=== PATIENT | male | born 1950 | race Hispanic/Latino ===

== ENCOUNTER 2017-06-02 11:41 | Emergency (ER) | payer MEDICARE, OTHER ==
[2017-06-02 12:48] LABS: BASOPHILS % (AUTO) 0.6 % (0.0-5.0); EOSINOPHILS % (AUTO) 2.6 % (0.0-8.0); HEMATOCRIT 26.6 % (42-54); LYMPHOCYTES % (AUTO) 15.6 % (21.0-51.0); MEAN CORPUSCULAR HGB CONC 35.5 g/dL (32.0-36.0); MEAN CORPUSCULAR VOLUME 95.9 fL (79-99); MONOCYTES % (AUTO) 11.5 % (3.0-13.0); NEUTROPHILS % (AUTO) 69.7 % (40.0-77.0); PLATELET COUNT (AUTO) 167 K/uL (130-400); RED BLOOD CELL COUNT(AUTO) 2.78 MIL/uL (4.50-6.20); RED CELL DISTRIBUTION WIDTH 13.4 % (11.0-15.5); WHITE BLOOD COUNT (AUTO) 6.3 K/uL (4.8-10.8)
[2017-06-02 12:57] LABS: CREATININE 1.9 mg/dL (0.5-1.5); POTASSIUM 4.7 mmol/L (3.5-5.1)
[2017-06-02 13:01] LABS: INR 1.14 (0.85-1.15); PARTIAL THROMBOPLASTIN TIME 25.7 SEC (26.3-35.5); PROTHROMBIN TIME 11.9 SEC (9.6-11.6)
[2017-06-02 13:03] LABS: ALBUMIN 2.6 g/dL (3.5-5.0); BILIRUBIN,TOTAL 0.3 mg/dL (0.2-1.0); TOTAL PROTEIN, SERUM 5.7 g/dL (6.0-8.3)
[2017-06-02 13:37] LABS: APPEARANCE,URINE CLEAR (CLEAR); BILIRUBIN,URINE NEGATIVE (NEGATIVE); COLOR,URINE YELLOW (YELLOW); GLUCOSE, URINE (UA) 100 mg/dL (NEGATIVE); KETONES,URINE NEGATIVE (NEGATIVE); LEUKOCYTE ESTERASE ,URINE NEGATIVE (NEGATIVE); NITRATE,URINE NEGATIVE (NEGATIVE); OCCULT BLOOD,URINE SMALL (NEGATIVE); PROTEIN,URINE >=300 (NEGATIVE); UROBILINOGEN,URINE 0.2 mg/dL (0.2-1.0)
[2017-06-02 13:46] LABS: HYALINE CASTS, URINE 0-1 /LPF (0-1 /LPF); SQUAMOUS EPITHELIAL CELL,UR Rare /HPF (0-2)
[2017-06-02 13:48] LABS: BACTERIA,URINE Rare /HPF (None Seen); WBC,URINE None Seen /HPF (0-1)
[2017-06-02 14:11] LABS: ERYTHROCYTE SEDIMENTATION RATE 75 MM/HR (0-15)
[2017-06-02] MEDS ORDERED: DIAZEPAM 5 MG TABLET ONE (14:58)
== END 2017-06-02 18:33 | disposition home or self-care (01) ==
LOC: EDSEX → EDH 11:41
DX: G89.29 Other chronic pain (principal); M54.5 Low back pain; I25.10 Atherosclerotic heart disease of native coronary artery without angina pectoris; E11.9 Type 2 diabetes mellitus without complications; E78.5 Hyperlipidemia, unspecified; I10 Essential (primary) hypertension; Z88.0 Allergy status to penicillin; Z95.1 Presence of aortocoronary bypass graft; Z89.421 Acquired absence of other right toe(s)
CPT/HCPCS: 36415; 72148; 80053; 81001; 82550; 84484; 85025; 85610; 85651; 85730; 93005; 94761

== ENCOUNTER → 2017-11-05 | Outpatient (CLI) | payer MEDICARE, OTHER | END | disposition home or self-care (01) | LOC: RAH 16:17 | PROVIDERS: ATTEND Internal Medicine | DX: M51.36 Other intervertebral disc degeneration, lumbar region (principal); M47.896 Other spondylosis, lumbar region; M48.061 Spinal stenosis, lumbar region without neurogenic claudication; R29.6 Repeated falls; M25.78 Osteophyte, vertebrae; I10 Essential (primary) hypertension; E11.9 Type 2 diabetes mellitus without complications; E78.5 Hyperlipidemia, unspecified | CPT/HCPCS: 72100 ==

== ENCOUNTER 2017-11-22 07:06 | Inpatient (IN) | payer OTHER ==
[~2017-11-22] VITALS: Ht 167.6 cm; Wt 82.7 kg
[2017-11-22 07:45] LABS: BASOPHILS % (AUTO) 0.7 % (0.0-5.0); EOSINOPHILS % (AUTO) 1.3 % (0.0-8.0); LYMPHOCYTES % (AUTO) 5.3 % (21.0-51.0); MEAN CORPUSCULAR HEMOGLOBIN 32.4 pg (27.0-33.0); MEAN CORPUSCULAR HGB CONC 33.4 g/dL (32.0-36.0); MEAN CORPUSCULAR VOLUME 96.9 fL (79-99); MONOCYTES % (AUTO) 11.4 % (3.0-13.0); NEUTROPHILS % (AUTO) 81.3 % (40.0-77.0); PLATELET COUNT (AUTO) 288 K/uL (130-400); RED BLOOD CELL COUNT(AUTO) 1.95 MIL/uL (4.50-6.20); RED CELL DISTRIBUTION WIDTH 13.6 % (11.0-15.5); WHITE BLOOD COUNT (AUTO) 13.2 K/uL (4.8-10.8)
[2017-11-22 07:51] LABS: CREATININE 3.4 mg/dL (0.5-1.5); POTASSIUM 5.6 mmol/L (3.5-5.1)
[2017-11-22 07:53] LABS: ABG BASE EXCESS -6.2 mmol/L (-2.0-3.0); ABG OXYGEN SATURATION 95.6 % (95.0-99.0); ABG PCO2 28 mmHg (35-48)
[2017-11-22 07:55] LABS: INR 1.25 (0.85-1.15); PARTIAL THROMBOPLASTIN TIME 29.4 SEC (26.3-35.5); PROTHROMBIN TIME 13.1 SEC (9.6-11.6)
[2017-11-22 07:56] LABS: ALBUMIN 2.3 g/dL (3.5-5.0); BILIRUBIN,TOTAL 0.4 mg/dL (0.2-1.0); TOTAL PROTEIN, SERUM 6.4 g/dL (6.0-8.3)
[2017-11-22 08:12] LABS: B-TYPE NATRIURETIC PEPTIDE 2030 pg/mL (0-100)
[2017-11-22] MEDS ORDERED: LEVOFLOXACIN 500 MG/D5W 100 ML 100 ML ONE (08:16)
[2017-11-22 08:44] LABS: HEMATOCRIT 18.9 % (42-54)
[2017-11-22] MEDS ORDERED: PHARMACY COMMUNICATION MISC SCH (09:45)
[2017-11-22] MEDS ORDERED: LORATADINE 10 MG TABLET PO SCH (09:45)
[2017-11-22] MEDS ORDERED: ACETAMINOPHEN 325 MG TAB PO SCH (09:45)
[2017-11-22] MEDS: SODIUM CHLORIDE 0.9% IVP SCH (10:15)
[2017-11-22] MEDS: BUMETANIDE IVP SCH (10:15)
[2017-11-22 10:43] LABS: TROPONIN I 0.19 ng/mL (0.00-0.06)
[2017-11-22 10:48] LABS: % IRON SATURATION 9.6 % (30-44)
[2017-11-22] MEDS ORDERED: ACETAMINOPHEN 325 MG TAB ONE (11:18)
[2017-11-22] MEDS ORDERED: LORATADINE 10 MG TABLET ONE (11:18)
[2017-11-22 11:28] LABS: APPEARANCE,URINE Clear (CLEAR); BILIRUBIN,URINE Negative (NEGATIVE); COLOR,URINE Yellow (YELLOW); GLUCOSE, URINE (UA) 250 mg/dL (NEGATIVE); KETONES,URINE Negative (NEGATIVE); LEUKOCYTE ESTERASE ,URINE Trace (NEGATIVE); NITRATE,URINE Negative (NEGATIVE); OCCULT BLOOD,URINE Negative (NEGATIVE); PH,URINE 7.5 (5.0-8.0); PROTEIN,URINE >=1000 (NEGATIVE); UROBILINOGEN,URINE 0.2 mg/dL (0.2-1.0)
[2017-11-22 11:39] LABS: BACTERIA,URINE Few /HPF (None Seen); RBC,URINE None Seen /HPF (0-1); SQUAMOUS EPITHELIAL CELL,UR 0-2 /HPF (0-2)
[2017-11-22 14:55] VITALS: BP 156/73
[2017-11-22 16:23] VITALS: BP 168/78
[2017-11-22 19:00] VITALS: BP 150/68
[2017-11-22] MEDS ORDERED: ATOR40TA69 PO (19:46)
[2017-11-22] MEDS ORDERED: AMLO2.5T3 PO (19:46)
[2017-11-22] MEDS ORDERED: NIFE30TA91 PO (19:46)
[2017-11-22] MEDS ORDERED: SODI650T PO (19:46)
[2017-11-22] MEDS ORDERED: CYAN10009 PO (19:46)
[2017-11-22] MEDS ORDERED: GLIP5POW MC (19:46)
[2017-11-22] MEDS ORDERED: METO50TA18 PO (19:46)
[2017-11-22] MEDS ORDERED: FOLI0.8T41 PO (19:46)
[2017-11-22] MEDS ORDERED: ENAL20TA PO (19:46)
[2017-11-22] MEDS ORDERED: DULO60CA63 PO (19:46)
[2017-11-22] MEDS ORDERED: ASPI-1012 PO (19:46)
[2017-11-22 20:19] LABS: ALBUMIN 2.3 g/dL (3.5-5.0); CREATININE 3.3 mg/dL (0.5-1.5); PHOSPHORUS 4.1 mg/dL (2.5-4.9)
[2017-11-22 20:36] LABS: TROPONIN I 0.19 ng/mL (0.00-0.06)
[2017-11-22] MEDS ORDERED: ACETAMINOPHEN 325 MG TAB PO PRN (22:30)
[2017-11-22] MEDS ORDERED: ACETAMINOPHEN EXTRA STRENGTH 500 MG TABLET PO PRN (22:30)
[2017-11-22] MEDS: ENALAPRIL MALEATE 10 MG TABLET PO SCH (22:35)
[2017-11-22] MEDS: SODIUM BICARBONATE 650 MG TAB PO SCH (22:35)
[2017-11-22] MEDS: ATORVASTATIN CALCIUM 40 MG TABLET PO SCH (22:35)
[2017-11-22] MEDS: METOPROLOL TARTRATE 50 MG TAB PO SCH (22:35)
[2017-11-22 22:48] LABS: TROPONIN I 0.21 ng/mL (0.00-0.06)
[2017-11-22 23:00] VITALS: BP 161/81
[2017-11-23 03:00] VITALS: BP 176/76
[2017-11-23 04:05] LABS: CREATININE 3.5 mg/dL (0.5-1.5); POTASSIUM 4.7 mmol/L (3.5-5.1); TROPONIN I 0.31 ng/mL (0.00-0.06)
[2017-11-23] MEDS: GLIPIZIDE 5 MG TABLET PO SCH ×2 (06:25→19:10)
[2017-11-23] MEDS: SODIUM CHLORIDE 0.9% IVP SCH (06:37)
[2017-11-23] MEDS: BUMETANIDE IVP SCH (06:37)
[2017-11-23 07:28] VITALS: BP 188/77
[2017-11-23] MEDS ORDERED: AMLODIPINE BESYLATE 2.5 MG TAB PO SCH (09:00)
[2017-11-23] MEDS ORDERED: NIFEDIPINE ER 30 MG TAB PO SCH (09:00)
[2017-11-23] MEDS: PANTOPRAZOLE 40 MG/VIAL IVP SCH (09:36)
[2017-11-23] MEDS: METOPROLOL TARTRATE 50 MG TAB PO SCH (09:37)
[2017-11-23] MEDS: SODIUM BICARBONATE 650 MG TAB PO SCH ×2 (09:37→21:10)
[2017-11-23] MEDS: FOLIC ACID/VITAMIN B COMP W-C 1 MG CAPSULE PO SCH (09:38)
[2017-11-23] MEDS: CYANOCOBALAMIN (VITAMIN B-12) 1,000 MCG TABLET PO SCH (09:38)
[2017-11-23] MEDS: ENALAPRIL MALEATE 10 MG TABLET PO SCH ×2 (09:38→21:11)
[2017-11-23] MEDS: ASPIRIN 325 MG TABLET PO SCH (09:39)
[2017-11-23] MEDS: DULOXETINE HCL 30 MG CAP PO SCH (09:39)
[2017-11-23 11:14] VITALS: BP 165/59
[2017-11-23 13:00] LABS: MEAN CORPUSCULAR HGB CONC 34.5 g/dL (32.0-36.0); MEAN CORPUSCULAR VOLUME 92.9 fL (79-99); PLATELET COUNT (AUTO) 236 K/uL (130-400); RED BLOOD CELL COUNT(AUTO) 2.18 MIL/uL (4.50-6.20); RED CELL DISTRIBUTION WIDTH 17.2 % (11.0-15.5); WHITE BLOOD COUNT (AUTO) 8.7 K/uL (4.8-10.8)
[2017-11-23 13:26] LABS: HEMATOCRIT 20.2 % (42-54)
[2017-11-23] MEDS ORDERED: SODIUM CHLORIDE 0.9% 250 ML IV ONE (15:43)
[2017-11-23 16:16] VITALS: BP 134/61
[2017-11-23 19:41] VITALS: BP 147/64
[2017-11-23] MEDS: ATORVASTATIN CALCIUM 40 MG TABLET PO SCH (21:10)
[2017-11-23] MEDS: LABETALOL HCL 200 MG TABLET PO SCH (21:11)
[2017-11-23 23:42] VITALS: BP 141/72
[2017-11-24 03:44] VITALS: BP 137/59
[2017-11-24 04:05] LABS: CREATININE 3.8 mg/dL (0.5-1.5)
[2017-11-24 04:09] LABS: B-TYPE NATRIURETIC PEPTIDE 1040 pg/mL (0-100)
[2017-11-24 04:16] LABS: HEMATOCRIT 24.3 % (42-54); MEAN CORPUSCULAR HEMOGLOBIN 30.8 pg (27.0-33.0); MEAN CORPUSCULAR VOLUME 90.4 fL (79-99); PLATELET COUNT (AUTO) 263 K/uL (130-400); RED BLOOD CELL COUNT(AUTO) 2.69 MIL/uL (4.50-6.20); RED CELL DISTRIBUTION WIDTH 16.2 % (11.0-15.5); WHITE BLOOD COUNT (AUTO) 7.3 K/uL (4.8-10.8)
[2017-11-24] MEDS: GLIPIZIDE 5 MG TABLET PO SCH ×2 (06:50→16:28)
[2017-11-24 07:00] VITALS: BP 142/64
[2017-11-24] MEDS ORDERED: AMLODIPINE BESYLATE 5 MG TAB PO SCH (09:00)
[2017-11-24] MEDS ORDERED: BUMETANIDE 1 MG TAB PO SCH (09:00)
[2017-11-24] MEDS: DULOXETINE HCL 30 MG CAP PO SCH (09:28)
[2017-11-24] MEDS: LABETALOL HCL 200 MG TABLET PO SCH (09:29)
[2017-11-24] MEDS: FOLIC ACID/VITAMIN B COMP W-C 1 MG CAPSULE PO SCH (09:29)
[2017-11-24] MEDS: PANTOPRAZOLE 40 MG/VIAL IVP SCH (09:30)
[2017-11-24] MEDS: ASPIRIN 325 MG TABLET PO SCH (09:30)
[2017-11-24] MEDS: CYANOCOBALAMIN (VITAMIN B-12) 1,000 MCG TABLET PO SCH (09:30)
[2017-11-24] MEDS: ENALAPRIL MALEATE 10 MG TABLET PO SCH (09:30)
[2017-11-24] MEDS: SODIUM BICARBONATE 650 MG TAB PO SCH (09:31)
[2017-11-24 11:00] VITALS: BP 116/58
[2017-11-24 16:00] VITALS: BP 149/72
[2017-11-24] MEDS ORDERED: AMLO5TAB4 PO (16:34)
[2017-11-24] MEDS ORDERED: BUME1TAB12 PO (16:34)
[2017-11-24] MEDS ORDERED: LABE200T5 PO (16:34)
== END 2017-11-24 19:45 | disposition home or self-care (01) | DRG 291 ==
LOC: EDSEX 07:06 → EDH 07:06 → EDHIP 09:24 → 2AH 14:30
PROVIDERS: ADMIT Internal Medicine; ATTEND Internal Medicine
PROC: 30233N1 Transfusion of Nonautologous Red Blood Cells into Peripheral Vein, Percutaneous Approach (ICD-10-PCS; principal; 2017-11-22)
PROC: 5A09357 Assistance with Respiratory Ventilation, Less than 24 Consecutive Hours, Continuous Positive Airway Pressure (ICD-10-PCS; 2017-11-23)
DX: I13.0 Hypertensive heart and chronic kidney disease with heart failure and stage 1 through stage 4 chronic kidney disease, or unspecified chronic kidney disease (principal); I50.23 Acute on chronic systolic (congestive) heart failure; N17.9 Acute kidney failure, unspecified; N18.4 Chronic kidney disease, stage 4 (severe); E11.22 Type 2 diabetes mellitus with diabetic chronic kidney disease; E78.5 Hyperlipidemia, unspecified; D63.1 Anemia in chronic kidney disease; I25.10 Atherosclerotic heart disease of native coronary artery without angina pectoris; Z95.1 Presence of aortocoronary bypass graft; Z88.0 Allergy status to penicillin; Z79.82 Long term (current) use of aspirin; Z79.899 Other long term (current) drug therapy; Z89.421 Acquired absence of other right toe(s); Z79.84 Long term (current) use of oral hypoglycemic drugs
CPT/HCPCS: 36415; 36430; 36600; 71045; 71046; 76770; 80048; 80053; 80069; 81001; 82550; 82803; 82948; 83540; 83550; 83874; 83880; 84484; 85025; 85027; 85610; 85730; 86850; 86900; 86901; 86922; 87040; 93005; 93306; 93970; 94660; A4344; C9113; J1956; J3490; J7030; P9016